=== PATIENT | male | born 1970 | race American Indian/Alaskan Native ===

== ENCOUNTER 2018-09-09 08:19 | Emergency (ER) | payer SELFPAY ==
[2018-09-09] MEDS ORDERED: ASPIRIN PO ONE (08:29)
[2018-09-09] MEDS ORDERED: CATAPRES PO ONE (09:08)
[2018-09-09 09:16] LABS: Basophils # (Auto) 0.1 K/mm3 (0.0-0.1); Basophils % (Auto) 0.7 % (0.0-1.8); Eosinophils # (Auto) 0.1 K/mm3 (0.0-0.4); Eosinophils % (Auto) 1.6 % (0.0-4.3); Hematocrit 50.3 % (35.5-45.6); Hemoglobin 15.8 gm/dl (11.8-15.2); Lymphocytes # (Auto) 3.8 K/mm3 (1.2-5.4); Lymphocytes % (Auto) 42.4 % (13.4-35.0); Mean Corpuscular HGB Conc 32 % (32-34); Monocytes # (Auto) 0.7 K/mm3 (0.0-0.8); Monocytes % (Auto) 7.9 % (0.0-7.3); Platelet Count 211 K/mm3 (140-440); Red Blood Count 7.36 M/mm3 (3.65-5.03); Red Cell Distribution Width 15.1 % (13.2-15.2)
[2018-09-09 09:18] LABS: BUN/Creatinine Ratio 12; Blood Urea Nitrogen 12 mg/dL (9-20); Calcium 9.2 mg/dL (8.4-10.2); Hemolysis Index 41
[2018-09-09 09:20] LABS: Mean Corpuscular Volume 68 fl (84-94)
--- NOTE | 2018-09-09 09:35 | XRay Report ---
CHEST 2 VIEWS INDICATION: Chest pain. COMPARISON: 12/14/2010. FINDINGS: PA and lateral chest radiographs demonstrate stable cardiomediastinal silhouette, including slightly convex contour along the proximal ascending aorta. Clear lungs. Intact bones. Right hemidiaphragm again slightly higher than the left. Cholecystectomy clips. CONCLUSION: No acute disease in the chest. Thank you for the opportunity to participate in this patient's care.
--- NOTE | 2018-09-09 12:52 | Emergency Department Report ---
ED General Adult HPI - General Chief complaint: Dyspnea/Respdistress Stated complaint: SOB/(L) ARM PAIN Time Seen by Provider: 09/09/18 09:04 Source: patient Mode of arrival: Ambulatory Limitations: No Limitations - History of Present Illness Initial comments: Patient is a 47-year-old -[place] male who is presenting with left arm pain that started approximately 20 minutes prior to arrival. Patient after getting the arm pain started having some chest pressure shortness of breath. Patient did feel panicked. Patient states he has been working out more and also thinks this could be muscular in nature. Patient states the chest discomfort is improving. Patient states pain is a 4 out of 5 in severity. Patient is a smoker and has a history of hypertension but is not compliant with his medications. Severity scale (0 -10): 4 - Related Data Home Medications Medication Instructions Recorded Confirmed Last Taken Lisinopril [Zestril] 10 mg PO QDAY 01/15/14 01/15/14 01/14/14 1 hydroCHLOROthiazide 25 mg PO DAILY 01/15/14 01/15/14 01/14/14 [Hydrochlorothiazide] 1 Previous Rx's Medication Instructions Recorded Last Taken Type Cyclobenzaprine [Flexeril 10mg] 10 mg PO Q8H PRN #21 tablet 01/15/14 Unknown Rx HYDROcodone/APAP 5-325 [Avant 1 each PO Q6HR PRN #16 tablet 01/15/14 Unknown Rx 5-325 mg TAB] Ibuprofen [Motrin] 600 mg PO Q8H PRN #20 tablet 09/09/18 Unknown Rx Lisinopril/Hydrochlorothiazide 1 each PO DAILY #30 tablet 09/09/18 Unknown Rx [Zestoretic 10-12.5 mg Tablet] methOCARBAMOL [Robaxin TAB] 500 mg PO Q6H PRN #15 tablet 09/09/18 Unknown Rx Allergies Allergy/AdvReac Type Severity Reaction Status Date / Time No Known Allergies Allergy Verified 01/15/14 05:40 ED Review of Systems ROS: Stated complaint: SOB/(L) ARM PAIN Other details as noted in HPI Comment: All other systems reviewed and negative ED Past Medical Hx - Past Medical History Previous Medical History?: Yes Hx Hypertension: Yes - Surgical History Past Surgical History?: No - Social History Smoking Status: Never Smoker Substance Use Type: None - Medications Home Medications: Home Medications Medication Instructions Recorded Confirmed Last Taken Type Cyclobenzaprine [Flexeril 10mg] 10 mg PO Q8H PRN #21 tablet 01/15/14 Unknown Rx HYDROcodone/APAP 5-325 [Avant 1 each PO Q6HR PRN #16 tablet 01/15/14 Unknown Rx 5-325 mg TAB] Lisinopril [Zestril] 10 mg PO QDAY 01/15/14 01/15/14 01/14/14 History 1 hydroCHLOROthiazide 25 mg PO DAILY 01/15/14 01/15/14 01/14/14 History [Hydrochlorothiazide] 1 Ibuprofen [Motrin] 600 mg PO Q8H PRN #20 tablet 09/09/18 Unknown Rx Lisinopril/Hydrochlorothiazide 1 each PO DAILY #30 tablet 09/09/18 Unknown Rx [Zestoretic 10-12.5 mg Tablet] methOCARBAMOL [Robaxin TAB] 500 mg PO Q6H PRN #15 tablet 09/09/18 Unknown Rx ED Physical Exam - General Limitations: No Limitations General appearance: alert, in no apparent distress - Head Head exam: Present: atraumatic, normocephalic - Eye Eye exam: Present: normal appearance - ENT ENT exam: Present: mucous membranes moist - Neck Neck exam: Present: normal inspection - Respiratory Respiratory exam: Present: normal lung sounds bilaterally, chest wall tenderness (some reproducable pain). Absent: respiratory distress, wheezes, rales, rhonchi - Cardiovascular Cardiovascular Exam: Present: regular rate, normal rhythm. Absent: systolic mur mur, diastolic murmur, rubs, gallop - GI/Abdominal GI/Abdominal exam: Present: soft, normal bowel sounds - Rectal Rectal exam: Present: deferred - Extremities Exam Extremities exam: Present: normal inspection - Back Exam Back exam: Present: normal inspection - Neurological Exam Neurological exam: Present: alert, oriented X3 - Psychiatric Psychiatric exam: Present: normal affect, normal mood - Skin Skin exam: Present: warm, dry, intact, normal color. Absent: rash ED Course Vital Signs 09/09/18 09/09/18 09/09/18 08:27 09:27 11:52 Temperature 97.9 F Pulse Rate 105 H 96 H 98 H Respiratory 18 16 Rate Blood Pressure 174/113 167/110 Blood Pressure 136/90 [Right] O2 Sat by Pulse 98 Oximetry ED Medical Decision Making - Lab Data Result diagrams: 09/09/18 08:43 09/09/18 08:39 Lab Results 09/09/18 09/09/18 09/09/18 Range/Units 08:39 08:43 09:10 WBC 8.8 (4.5-11.0) K/mm3 RBC 7.36 H (3.65-5.03) M/mm3 Hgb 15.8 H (11.8-15.2) gm/dl Hct 50.3 H (35.5-45.6) % MCV 68 L (84-94) fl MCH 22 L (28-32) pg MCHC 32 (32-34) % RDW 15.1 (13.2-15.2) % Plt Count 211 (140-440) K/mm3 Lymph % (Auto) 42.4 H (13.4-35.0) % Rich % (Auto) 7.9 H (0.0-7.3) % Eos % (Auto) 1.6 (0.0-4.3) % Baso % (Auto) 0.7 (0.0-1.8) % Lymph # 3.8 (1.2-5.4) K/mm3 Rich # 0.7 (0.0-0.8) K/mm3 Eos # 0.1 (0.0-0.4) K/mm3 Baso # 0.1 (0.0-0.1) K/mm3 Seg Neutrophils % 47.4 (40.0-70.0) % Seg Neutrophils # 4.2 (1.8-7.7) K/mm3 D-Dimer < 135.00 (0-234) ng/mlDDU Sodium 137 (137-145) mmol/L Potassium 3.8 (3.6-5.0) mmol/L Chloride 97.0 L (98-107) mmol/L Carbon Dioxide 25 (22-30) mmol/L Anion Gap 19 mmol/L BUN 12 (9-20) mg/dL Creatinine 1.0 (0.8-1.5) mg/dL Estimated GFR > 60 ml/min BUN/Creatinine Ratio 12 % Glucose 104 H (75-100) mg/dL Calcium 9.2 (8.4-10.2) mg/dL Troponin T < 0.010 (0.00-0.029) ng/mL 09/09/18 Range/Units 11:21 WBC (4.5-11.0) K/mm3 RBC (3.65-5.03) M/mm3 Hgb (11.8-15.2) gm/dl Hct (35.5-45.6) % MCV (84-94) fl MCH (28-32) pg MCHC (32-34) % RDW (13.2-15.2) % Plt Count (140-440) K/mm3 Lymph % (Auto) (13.4-35.0) % Rich % (Auto) (0.0-7.3) % Eos % (Auto) (0.0-4.3) % Baso % (Auto) (0.0-1.8) % Lymph # (1.2-5.4) K/mm3 Rich # (0.0-0.8) K/mm3 Eos # (0.0-0.4) K/mm3 Baso # (0.0-0.1) K/mm3 Seg Neutrophils % (40.0-70.0) % Seg Neutrophils # (1.8-7.7) K/mm3 D-Dimer (0-234) ng/mlDDU Sodium (137-145) mmol/L Potassium (3.6-5.0) mmol/L Chloride (98-107) mmol/L Carbon Dioxide (22-30) mmol/L Anion Gap mmol/L BUN (9-20) mg/dL Creatinine (0.8-1.5) mg/dL Estimated GFR ml/min BUN/Creatinine Ratio % Glucose (75-100) mg/dL Calcium (8.4-10.2) mg/dL Troponin T < 0.010 (0.00-0.029) ng/mL - EKG Data -: EKG Interpreted by Co EKG shows normal: sinus rhythm, axis, intervals, QRS complexes, ST-T waves Rate: normal - EKG Data Interpretation: normal EKG - Radiology Data Radiology results: report reviewed (CXR WNL) - Medical Decision Making He has had 2 negative troponins and his symptoms are atypical. His heart score is 1. Patient to be discharged home with muscle relaxant and follow-up with primary care. Patient also started on a blood pressure medicines as well. Critical care attestation.: If time is entered above; I have spent that time in minutes in the direct care of this critically ill patient, excluding procedure time. ED Disposition Clinical Impression: Atypical chest pain, Muscle spasm, Hypertensive urgency Disposition: DC-01 TO HOME OR SELFCARE Is pt being admited?: No Does the pt Need Aspirin: No Condition: Stable Instructions: Chest Pain (ED), Hypertension (ED) Referrals: MICA ELENA MD [Primary Care Provider] - 3-5 Days Time of Disposition: 12:52
[2018-09-09 13:04] VITALS: BP 133/88
== END 2018-09-09 13:04 | disposition home or self-care (01) ==
LOC: ED 08:19
DX: M79.602 Pain in left arm (principal); R07.89 Other chest pain; I16.0 Hypertensive urgency; I10 Essential (primary) hypertension
CPT/HCPCS: 36415; 71046; 80048; 84484; 85025; 85379; 93005; 93010; 99284